=== PATIENT | male | born 1980 ===

== ENCOUNTER 2019-09-25 12:33 | Day surgery (SDC) | payer OTHER ==
[2019-09-25] VITALS (7 sets, daily range): BP systolic 105–130; BP diastolic 52–67
[~2019-09-25] VITALS: Ht 172.7 cm; Wt 75.2 kg
[~2019-09-25 12:33] MED LIST: BENZ0.5T43 PO; CAPS60CR6 TP; GABA800T11 PO; LEVE10002 PO; MIRT15TA PO; ZIPR40CA2 PO; cefazolin/dext.iso 2gm/50ml 50 ML IV ONE; famotidine 20mg tablet PO ONE; ringers solution, lacted 1,000 ML IV ONE
[2019-09-25] MEDS ORDERED: ondansetron/PF 4mg/2ml inj IV PRN (14:05)
[2019-09-25] MEDS ORDERED: meperidine/PF 25mg/ml syringe IV PRN ×3 (14:05)
[2019-09-25] MEDS ORDERED: proCHLORperazine 10 MG/2 ml inj IV PRN (14:05)
[2019-09-25] MEDS ORDERED: ringers solution, lacted 1,000 ML IV SCH (14:05)
[2019-09-25] MEDS ORDERED: morphine 4 MG/ML inj SYRINge IV PRN ×2 (14:05)
[2019-09-25] MEDS ORDERED: MIDAZolam 5mg/5ml vial ONE (15:33)
[2019-09-25] MEDS ORDERED: fentaNYL/PF 50MCG/1 ML 2ML syringe ONE (15:33)
[2019-09-25] MEDS ORDERED: ROPIVAcaine 0.5% (5mg/ml) 30ml vial ONE (15:34)
[2019-09-25] MEDS ORDERED: rocuronium 10mg/ml inj IV ONE (15:47)
[2019-09-25] MEDS ORDERED: propofol inj 20 ML IV ONE (16:18)
[2019-09-25] MEDS ORDERED: BUPIVAcaine/PF 7.5mg/ml (0.75%) 10ml vial ONE (16:19)
--- NOTE | 2019-09-25 17:55 | NUR ---
Received from OR via BED, accompanied by Anesthesiologist DR MCDONNELL and report given by Anesthesiolgist. PATIENT A&OX4, DENIES PAIN, V/S WNL, NEUROVASCULAR CHECKS INTACT, 20G PIV LUE, SCD ON, DRESSING SPLINT TO RIGHT FOOT CDI ELEVATED WITH ICEBAG APPLIED.
--- NOTE | 2019-09-25 18:01 | NUR ---
2 GUARDS AT BED SIDE WELL
--- NOTE | 2019-09-25 18:45 | NUR ---
PATIENT A&OX4, DENIES PAIN, V/S WNL, NEUROVASCULAR CHECKS INTACT, 20G PIV LUE D/C, SCD OFF, DRESSING SPLINT TO RIGHT FOOT CDI ELEVATED WITH ICEBAG APPLIED. I HAVE REVIEWED D/C INSTRUCTIONS WITH PATIENT AND GUARDS AND THEY HAVE VERBALIZED UNDERSTANDING. PATIENT D/C TO [facility] WITH ALL BELONGINGS AND GUARDS GAVE TRANSPORT .
== END 2019-09-25 18:45 ==
LOC: PAS 12:33 → EEVIPCON 15:15 → PAS 18:45
PROVIDERS: ATTEND Orthopaedic Surgery
DX: M19.171 Post-traumatic osteoarthritis, right ankle and foot (principal); G89.18 Other acute postprocedural pain; Z88.8 Allergy status to other drugs, medicaments and biological substances; Z79.899 Other long term (current) drug therapy
CPT/HCPCS: 28725; 64445; 64450; C1713; J2250; J2704; J3010; J3490; J7120; A4215; A4618; A6449; A7000; J2795